=== PATIENT | female | born 1955 | race Caucasian/White ===

== ENCOUNTER → 2023-10-04 09:26 | Outpatient (REF) | payer MEDICARE, OTHER, SELFPAY | LOC: HWRAD 09:26 | PROVIDERS: ATTENDING PHYSICIAN Student in an Organized Health Care Education/Training Program | DX: Z12.31 Encounter for screening mammogram for malignant neoplasm of breast (principal); M81.0 Age-related osteoporosis without current pathological fracture | CPT/HCPCS: 77063; 77067; 77080 ==

== ENCOUNTER 2023-12-04 22:42 | Inpatient (IN) | payer MEDICARE, OTHER, SELFPAY ==
[2023-12-04] VITALS (7 sets, daily range): BP systolic 97–132; BP diastolic 56–76; BMI 25.6; BMI 24.9
[2023-12-04 20:09] LABS: % Basophils 0.5 % (0-2); % Eosinophils 1.6 % (0-6); % Immature Granulocytes 0.1 % (0-0.5); % Lymphocytes 30.8 % (20.5-51.1); Absolute Eosinophils 0.1 10^3/uL (0-0.7); Absolute Lymphocytes 2.7 10^3/uL (1.2-3.4); Absolute Monocytes 0.6 10^3/uL (0.1-0.6); Absolute Neutrophils 5.2 10^3/uL (1.4-6.5); Hematocrit 37.7 % (37.0-47.0); Hemoglobin 13.5 g/dL (12.0-16.0); Mean Corp Hgb Conc. 35.8 g/dL (33.0-37.0); Mean Corpuscular Hgb 29.7 pg (27.0-31.0); Mean Platelet Volume 9.1 fL (7.4-10.4); Nucleated Red Blood Cells % 0 %; Platelet Count 274 10^3/uL (130-400); Red Blood Cell Count 4.54 10^6/uL (4.20-5.40); Red Cell Dist. Width 13.3 % (11.5-14.5); White Blood Cell Count 8.6 10^3/uL (4.8-10.8)
[2023-12-04 20:24] LABS: ALT (SGPT) 18 U/L (0-35); AST (SGOT) 38 U/L (14-36); Albumin 4.5 g/dl (3.5-5.0); Alkaline Phosphatase 63 U/L (38-126); Blood Urea Nitrogen 18 mg/dl (7-17); Carbon Dioxide 25 mmol/L (22-30); Chloride 105 mmol/L (98-107); Estimated Creatinine Clearance 87 ml/min; Glucose 106 mg/dl (70-99); Potassium 3.8 mmol/L (3.5-5.1); Sodium 137 mmol/L (135-145); Total Bilirubin 0.7 mg/dl (0.2-1.3); Total Protein 6.9 g/dl (6.3-8.2); eGFR > 60.00
--- NOTE | 2023-12-04 20:27 | ED.GENMED ---
History of Present Illness
General
Chief Complaint: Cardiac Symptoms
Source: patient
Exam Limitations: none
Time Seen by Provider: 12/04/23 19:36
Travel History
Have you had any contact with someone who has COVID-19?: No
Do you have any symptoms of coronavirus? Fever > 100 degrees, chills, cough, shortness of breath, sore throat, loss of taste or smell, muscle aches, or headache?: No
History of Present Illness
History of Present Illness:
68-year-old female otherwise fairly healthy presents with palpitations onset last evening. This went away last evening came back again today. Someone that was with her put a smart watch on her wrist and it was notifying the patient of atrial
fibrillation. No prior history of this. She noted throat tightness when this was happening. She notes her heart rate has normalized currently. She denies any chest pain or shortness of breath. There is no associated nausea or diaphoresis. She
is healthy and does not take any medications
Phy Exam
Physical Exam
Physical Exam:
General: Well-appearing female no acute respiratory distress
HEENT: Normocephalic atraumatic neck is supple
Heart: Regular rate and rhythm no murmurs
Lungs: Clear no wheeze or rales
Abdomen: Soft nontender nondistended no guarding rebound normal bowel sounds
Extremities: No cyanosis or edema
Course
Orders/Labs/Results
Orders:
Orders
12/04/23 18:35
EKG [Electrocardiogram (*1)] Urgent
Reason for Study: Atrial Fibrillation
EKG- Treatment ONCE
12/04/23 20:00
Cardiac Monitoring- Treatment ONCE
12/04/23 20:01
CMP [Comprehensive Metabolic Panel] Urgent
Complete Blood Count/With Diff Urgent
TSH Reflex To Free T4 Urgent
Troponin I Urgent
12/04/23 21:18
Aspirin 325 mg PO NOW STA
12/04/23 21:36
PTT Urgent
Comment: Obtain baseline before beginning heparin infusion if not already collected
Heparin 4,000 units IV NOW STA
Pharmacy Request to Place See Dose Instructions PO NOW STA
Discontinue all Active Warfarin orders?: Yes
Nursing to Place Non Medication Order As Directed
Physician Order: PTT 6 hours after initial start of Heparin infusion
12/04/23 21:37
Metoprolol Xl [Toprol Xl] 12.5 mg PO NOW STA
12/04/23 21:45
Heparin 22078 Units/250 ml 25,000 units in 250 ml IV PER PROTOCOL
Weight to be used for heparin protocol in kilograms (kg):: 74
Protocol:: Cardiac Tx/Acute Coronary
PTT Goal Range to be used:: PTT 73 to 111 seconds
Order type:: Initial
INITIAL Infusion Dose (UNITS/KG/hr) & then follow protocol:: 15 units/kg/hr
Infusion Dose in UNITS/hr & then follow protocol (UNITS/hr):: 1,100
INFUSION RATE in mL/hr & then follow protocol (mL/hr):: 11
PTT less than or equal to 64 seconds:: Increase rate by 200 units/hr (+ 2 mL/hr)
PTT 64.1 to 72.9 seconds:: Increase rate by 100 units/hr (+ 1 mL/hr)
PTT 73 to 111 seconds:: Target Range. No change in rate.
PTT 111.1 to 130.9 seconds:: Decrease rate by 100 units/hr (- 1 mL/hr)
PTT 131 to 199.9 seconds:: HOLD for 1 hr. Then decrease rate by 200 units/hr (- 2 mL/hr)
PTT greater than or equal to 200 seconds:: HOLD for 2 hrs & Notify Provider. Then decrease by 200 units/hr (-
2 mL/hr)
Lab follow-up:: Each change, PTT q6h until 2 consecutive are therapeutic. Then PTT
daily.
12/04/23 22:[address] See Dose Instructions IV DIRECTED
Abnormal Lab Results
12/04/23
20:01
BUN 18 H mg/dl
(7-17)
Glucose 106 H mg/dl
(70-99)
AST 38 H U/L
(14-36)
Troponin I 1.320 H* ng/ml
12/04/23 20:01
12/04/23 20:01
Vital Signs
Initial and Last Documented VS:
Initial Vital Signs
Temp Pulse Resp BP Pulse Ox
98.7 F 78 17 132/76 99
12/04/23 18:42 12/04/23 18:42 12/04/23 18:42 12/04/23 18:42 12/04/23 18:42
Last Documented Vital Signs
Temp Pulse Resp BP Pulse Ox
98.7 F 78 17 132/76 99
12/04/23 18:42 12/04/23 18:42 12/04/23 18:42 12/04/23 18:42 12/04/23 18:42
MDM/Problems Addressed
Differential Diagnosis Includes:
Palpitations. Consider arrhythmia electrolyte abnormality or anemia. Check thyroid as well
EKG here shows sinus rhythm. Keep on monitor. Labs pending
*Critical Care Note
Total Time (30-74mins, 75-104mins- exclusive of procedures): Not Applicable
Update Note
Update Note:
Patient reexamined still pain-free. Troponin is elevated at 1.3. Discussed with cardiology who recommended aspirin heparin and Toprol-XL. Admit to medicine n.p.o. repeat labs and echocardiogram in the morning.
ED Attending Note
-
Portions of this chart may have been created with voice recognition software.� Occasional wrong word or��sound alike� substitutions may have occurred due to the inherent limitations of voice recognition software.
Discharge Plan
Departure
Patient Disposition: Admit
Date of Disposition: 12/04/23
Time of Disposition: 21:41
Admit to: Telemetry
Presentation/result/management discussed w/ accepting MD/DO: Hospitalist
Discharge Problem:
Chest pain
Referrals:
Chelsea Pittman DO [Family Provider] -
Interventions
Interventions:
*Risk Screen - Suicide Last Done: 12/04/23 18:43
*General Assessment Last Done: 12/04/23 18:43
*Neglect/Abuse Screening Last Done: 12/04/23 18:43
ED- Fall Risk Assessment Last Done: 12/04/23 19:56
*ED COVID-19 Vaccine History Last Done: 12/04/23 18:43
ED- Pulmonary Assessment Last Done: 12/04/23 19:56
ED- Cardiac Assessment Last Done: 12/04/23 19:56
Discharge Date and Time
Print Language: INDONESIAN
[2023-12-04 20:58] LABS: TSH Reflex To Free T4 1.67 uIU/ml (0.47-4.68)
[2023-12-04] MEDS: ASPIRIN 325 MG PO (21:20)
[2023-12-04] MEDS: TOPROL XL 12.5 MG PO (21:48)
[2023-12-04 21:57] LABS: APTT 33.8 Sec (23.4-35.0)
[2023-12-04] MEDS: HEPARIN 4000 UNITS IV (22:05)
--- NOTE | 2023-12-04 22:06 | HPS.HSE ---
Family Physician
-
Family Physician: Chelsea Pittman
Chief Complaint
-
Palpitations
History of Present Illness
Patient 68 years old female with past medical history of Takotsubo, dyslipidemia, anxiety, presented to the hospital with palpitations. Patient has been feeling palpitations since last evening around 8 PM and intermittent symptoms until she went to
bed. 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
with throat tightness and shortness of breath. One of the folks around was a doctor and she placed her smart watch on her and noticed that she was in an irregular heartbeat probably atrial fibrillation. She denies actual chest pain. She denies
nausea vomiting or diaphoresis or syncope. She had an episode of Takotsubo this to be attributed to high altitude and she had known coronary artery disease by cardiac catheterization at the time and she had a recent stress test a few months ago
that was unremarkable and no signs of ischemia. In the ED, she was noted to have elevated troponin of 1.30 and she was noticed normal sinus rhythm on twelve-lead EKG with nonspecific ST-T changes abnormalities. ER contacted cardiology who
recommended heparin drip and n.p.o. after midnight for possible procedures. She was referred to hospitalist for further evaluation.
Medical History
Past Medical History
Past Medical History: Reports Other (Hyperlipidemia, osteoporosis, nonobstructive CAD, PVCs in the past, history of Takotsubo cardiomyopathy, GERD, anxiety)
Past Surgical History: Reports Other (Cardiac catheterizations)
Social History
Tobacco: Non-smoker
Alcohol: None
Drug: None
Family History
Family History: Not pertinent
Allergies / Home Medications
Allergies reflects when Allergies were last updated in [facility].
Home Medications with original date entered in [facility]
Allergy/Medication List:
Allergies
Allergy/AdvReac Type Severity Reaction Status Date / Time
NKA - No Known Allergies Allergy Unknown Uncoded 12/04/23 18:41
Review of Systems
-
A 12 point ROS was completed and negative except as noted: Yes
Physical Exam
Vital Signs
Vital Signs
Temp Pulse Resp BP Pulse Ox
98.7 F 60 17 115/74 99
12/04/23 18:42 12/04/23 21:48 12/04/23 18:42 12/04/23 21:48 12/04/23 18:42
Physical exam:
General: Acutely ill
HEENT: Normocephalic, Atraumatic and Moist Mucous Membranes
Respiratory: Clear to Auscultation; Negative Wheezes, Rales or Rhonchi
Cardiac: Regular Rhythm and S1/S2
GI: Soft, Nontender and Nondistended
Musculoskeletal: No Clubbing, No Cyanosis and No Edema
Neuro: Awake, Alert and Oriented
Psych: Calm
Physical Exam
General: Other
Laboratory Results
-
12/04/23 20:01
12/04/23 20:01
Laboratory Results
APTT 33.8 Sec (23.4-35.0) 12/04/23 21:42
Total Bilirubin 0.7 mg/dl (0.2-1.3) 12/04/23 20:01
AST 38 U/L (14-36) H 12/04/23 20:01
ALT 18 U/L (0-35) 12/04/23 20:01
Alkaline Phosphatase 63 U/L (38-126) 12/04/23 20:01
Troponin I 1.320 ng/ml H* 12/04/23 20:01
Impression/Plan
-
IMPRESSION:
Patient 68 years female with history of Takotsubo cardiomyopathy in the past, anxiety, dyslipidemia came into the hospital palpitations/chest discomfort associated with elevated troponin. Possible episode of paroxysmal atrial fibrillation. Patient
at increased risk morbidity mortality therefore she will need to be treated in the hospital and monitor accordingly for progress and or toxicity.
Impression:
Chest pain/palpitations
Elevated troponin, rule out acute coronary syndrome
Conditions prior to presentation:
Takotsubo cardiomyopathy
Hyperlipidemia
Anxiety, nonspecific
PLAN:
She will be on a cardiac monitoring
Heparin drip for ACS protocol
Trend cardiac enzymes
Start aspirin 81 mg daily, atorvastatin 40 mg nightly, Toprol-XL 12.5 mg daily
Check fasting lipids in a.m.
Pain medications as needed
TSH checked and normal 1.67
DVT prophylaxis will be taking care of by heparin drip
CODE STATUS full code
Total time spent on today's encounter was 75 minutes which included time spent in counseling the patient/family regarding diagnosis and treatment plan as listed above, goals of care, and symptom management. Case was discussed with nursing staff,
specialists, and care coordinators/case management. All labs and imaging personally reviewed by me. Remainder the time spent in detailed review of previous records, lab data, imaging, and other medical provider documentation.
[2023-12-04] MEDS: HEPARIN 25000 UNITS/250 ML IV (22:08)
[2023-12-04] MEDS: LIPITOR 40 MG PO (23:50)
[2023-12-05] VITALS (13 sets, daily range): BP systolic 91–122; BP diastolic 59–72
[2023-12-05 01:40] LABS: Troponin I 0.855 ng/ml
[2023-12-05 03:42] LABS: APTT > 200 Sec (23.4-35.0)
[2023-12-05 07:36] LABS: Hematocrit 39.2 % (37.0-47.0); Hemoglobin 13.3 g/dL (12.0-16.0); Mean Corp Hgb Conc. 33.9 g/dL (33.0-37.0); Mean Corpuscular Hgb 29.2 pg (27.0-31.0); Mean Corpuscular Volume 86.2 fL (81.0-99.0); Mean Platelet Volume 9.3 fL (7.4-10.4); Platelet Count 246 10^3/uL (130-400); Red Blood Cell Count 4.55 10^6/uL (4.20-5.40); Red Cell Dist. Width 13.4 % (11.5-14.5); White Blood Cell Count 5.4 10^3/uL (4.8-10.8)
[2023-12-05 07:56] LABS: Blood Urea Nitrogen 17 mg/dl (7-17); Calcium 9.2 mg/dl (8.4-10.2); Carbon Dioxide 29 mmol/L (22-30); Chloride 107 mmol/L (98-107); Estimated Creatinine Clearance 87 ml/min; Glucose 89 mg/dl (70-99); HDL Cholesterol 69 mg/dl; LDL Cholesterol, Calculated 66 mg/dl; Potassium 4.1 mmol/L (3.5-5.1); Sodium 138 mmol/L (135-145); Total Cholesterol 147 mg/dl (50-199); Triglyceride 60 mg/dl (10-149); Very Low Density Lipoprotein 12 mg/dl (0-30); eGFR > 60.00
--- NOTE | 2023-12-05 08:25 | CON.CAR ---
Addendum entered and electronically signed by Stas Lott DO 12/05/23 09:50:
I saw and examined the patient.
The Register Of Deeds's note was reviewed and I agree with the note.
Comment:
Plan:
Discussed that her symptoms were concerning for [place] and her troponin peaked at 1.3 and is trending down.
Her EKG showed some nonspecific anterior ST-T changes
Discussed options and she was agreeable to left heart cardiac cath to eval her coronary anatomy. She has hx of nonobstructive disease by cath in [place] in 2018 in setting of Takotsubo CM.
Add beta alexander. Hypotension has precluded med therapy in the past for her CM. Her EF had historically normalized
She had recent normal perfusion stress in setting of atypical cp in Jun 2023.
Cont statin for hypelipidemia
Check echo
Cont IV Heparin
Check outpt monitor to eval for AFib and cont to monitor for arrhythmia on tele. Strips reviewed from 27 bards not conclusive for arrhythmia. Ectopy was noted.
Discussed with nursing.
Original Note:
Consultation
Consultation Request
Date/Time Consultation Requested: 12/04/2023
Date/Time Consultation Performed: 12/05/2023
Requesting Provider: Dr. Coombs
Performing Provider: Bernadette Arteaga PA-C for Dr. Lott
Reason for Consultation: Abnormal troponin, palpitations
Medical History
-
History of Present Illness:
Patient is a 68-year-old female with past medical history significant for Takotsubo cardiomyopathy with recovered ejection fraction, hyperlipidemia, cystic kidney disease who presented to emergency department 12/04/2023 with complaints of palpitations
associated with chest/throat tightness and shortness of breath. Patient reports on the evening 12/03/2023 she started with intermittent palpitations where she felt her heart was beating fast/pounding and skipping. This was associated with throat and
chest tightness. She went to bed and woke up the next morning with similar symptoms. As the day went on she noted dyspnea on exertion with ongoing palpitations. 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
unwell. There was a physician who was present who had a smart watch and placed it on her which showed possible atrial fibrillation and she was prompted to go to the emergency department. Upon presentation to the emergency department her symptoms
were improving. EKG showed sinus rhythm without acute ischemic changes. Patient was noted to have elevated troponin of 1.320. TSH 1.67.
At time of this evaluation patient resting comfortably in bed. She currently denies chest or throat discomfort, palpitations, shortness of breath. I reviewed tracings from smart watch which show possible atrial fibrillation although baseline
artifact makes interpretation difficult. She did have short runs of PVCs in ventricular bigeminy pattern on one tracing.
Past medical history:
Takotsubo cardiomyopathy with recovered ejection fraction 2017
Hyperlipidemia
Cystic kidney disease
Past Medical History
Past Medical History: Other ([facility])
Past Surgical History: Other (Renal cyst removed 1998)
Social History
Tobacco: Non-Smoker
Alcohol: Occasional
Drug: None
Personal:
Living: With Family
Family History
Family History: Other (Father of a stroke at 74; mother had CAD/CABG x 3 at 70)
Allergies / Home Medications
Allergy/AdvReac Type Severity Reaction Status Date / Time
No Known Allergies Allergy Verified 12/04/23 23:56
Review of Systems
-
History Source: Patient
All other systems: Negative unless noted
Physical Exam
Vital Signs
Temp Pulse Resp BP Pulse Ox
98.2 F 56 17 104/61 99
12/05/23 07:00 12/05/23 07:00 12/05/23 07:00 12/05/23 07:00 12/05/23 07:00
GEN: No distress, awake, Ox3
HEENT: supple, anicteric, mmm
LUNGS: CTA, no wheezes/rales
CV: Reg, S1/S2, no murmur, rub or gallop
ABD: soft, BS+, NT/ND
EXT: No edema, clubbing or cyanosis
NEURO: Gross non-focal
SKIN: No rash, warm, dry, pink
Lab Results
12/05/23 07:06
12/05/23 07:06
Troponin I 0.550 ng/ml H* D 12/05/23 07:06
Impression / Plan
-
PCP: Regi Pittman
Surfacer Operator: Dr. Stas Lott
Impression:
Presented 12/04/2023 with palpitations, throat and chest discomfort
Abnormal troponin
Takotsubo cardiomyopathy with recovered ejection fraction 2017
Hyperlipidemia
Cystic kidney disease
Lexiscan nuclear stress test June 2023: Normal perfusion with preserved ejection fraction
Echocardiogram 08/05/2021: EF 60 to 65% with normal regional wall motion. Mild septal hypertrophy. Mild TR.
Cardiac cath April 2018 (in [place]): Nonobstructive 3�vessel disease
-Presented 12/04/2023 with palpitations, throat and chest discomfort
-Abnormal troponin, peaked 1.32 on initial presentation then downward trending. This occurred in setting of palpitations x 24 hours
-EKG on presentation demonstrated normal sinus rhythm with no acute ischemic changes.
-Continue IV heparin drip for 24 hours
-Would check echocardiogram given prior history of Takotsubo cardiomyopathy and now abnormal troponin
-Patient was noted to have nonobstructive three-vessel disease on cardiac catheterization in 2017. She had a normal Lexiscan nuclear stress test in June 2023. Pending echo results consider repeat ischemic evaluation possibly cardiac
catheterization
-Would keep n.p.o.
-Per review of telemetry no arrhythmias or evidence of atrial fibrillation noted overnight. Patient currently denies palpitations. If no arrhythmia noted throughout admission consider repeat outpatient monitor
-Prior history of Takotsubo cardiomyopathy with recovered ejection fraction. Patient did not tolerate beta-alexander or JOSÉ MIGUEL inhibitor secondary to ongoing hypotension with several episodes of near syncope. Repeat echocardiogram
-Hyperlipidemia: Patient takes atorvastatin 20 mg as outpatient. Lipid profile 12/05/2023 TC 147, HDL 69, LDL 66, triglycerides 60. Continue atorvastatin
-Blood pressure well-controlled and low at times. Currently not on any antihypertensive agents.
HPI 12/05/2023:
Patient is a 68-year-old female with past medical history significant for Takotsubo cardiomyopathy with recovered ejection fraction, hyperlipidemia, cystic kidney disease who presented to emergency department 12/04/2023 with complaints of palpitations
associated with chest/throat tightness and shortness of breath. Patient reports on the evening 12/03/2023 she started with intermittent palpitations where she felt her heart was beating fast/pounding and skipping. This was associated with throat and
chest tightness. She went to bed and woke up the next morning with similar symptoms. As the day went on she noted dyspnea on exertion with ongoing palpitations. On the evening of 12/04/2023 she was participating in a [employer] concert and felt
unwell. There was a physician who was present who had a smart watch and placed it on her which showed possible atrial fibrillation and she was prompted to go to the emergency department. Upon presentation to the emergency department her symptoms
were improving. EKG showed sinus rhythm without acute ischemic changes. Patient was noted to have elevated troponin of 1.320. TSH 1.67.
At time of this evaluation patient resting comfortably in bed. She currently denies chest or throat discomfort, palpitations, shortness of breath. I reviewed tracings from smart watch which show possible atrial fibrillation although baseline
artifact makes interpretation difficult. She did have short runs of PVCs in ventricular bigeminy pattern on one tracing.
Data Reviewed
-
EKG: Report Reviewed by me, Discussed with Physician, Discussed with Nurse and Discussed with Patient
Labs: Labs Reviewed by me, Discussed with Physician, Discussed with Nurse and Discussed with Patient
Old Records: Reviewed
[2023-12-05] MEDS: LOW STRENGTH ASPIRIN 81 MG PO (08:30)
--- NOTE | 2023-12-05 09:09 | W.PN.HOSP.TC ---
Today's Communication/Plan
-
Plan for cardiac cath. Plan for echocardiogram. Continue heparin drip.
Assessment / Plan
Assessment / Plan
Physical exam:
General: Acutely ill
HEENT: Normocephalic, Atraumatic and Moist Mucous Membranes
Respiratory: Clear to Auscultation; Negative Wheezes, Rales or Rhonchi
Cardiac: Regular Rhythm and S1/S2
GI: Soft, Nontender and Nondistended
Musculoskeletal: No Clubbing, No Cyanosis and No Edema
Neuro: Awake, Alert and Oriented
Psych: Calm
A/P:
Impression:
Chest pain/palpitations
Elevated troponin, rule out acute coronary syndrome
Rule out cardiac arrhythmias
Conditions prior to presentation:
Takotsubo cardiomyopathy
Hyperlipidemia
Anxiety, nonspecific
PLAN:
She will be on a cardiac monitoring
Cont Heparin drip for ACS protocol
Trended cardiac enzymes
Plan for cardiac catheterization today
Plan to repeat echocardiogram
Started aspirin 81 mg daily, atorvastatin 40 mg nightly, Toprol-XL 12.5 mg daily. Defer to cardiology any modifications of this regimen.
Check fasting lipids and LDL 66
Pain medications as needed
TSH checked and normal 1.67
DVT prophylaxis will be taking care of by heparin drip
CODE STATUS full code
Total time spent on today's encounter was 52 minutes which included time spent in counseling the patient/family regarding diagnosis and treatment plan as listed above, goals of care, and symptom management. Case was discussed with nursing staff,
specialists, and care coordinators/case management. All labs and imaging personally reviewed by me. Remainder the time spent in detailed review of previous records, lab data, imaging, and other medical provider documentation.
Anticipated Discharge: 24 - 48 hours
Subjective/Interval History
-
Date of Service: December 05, 2023
Patient denies any chest pain or shortness of breath or palpitations today.
Objective Data
-
Labs:
Laboratory Results
12/04/23 12/05/23 12/05/23
21:42 03:01 07:06
WBC 5.4
Hgb 13.3
Hct 39.2
Plt Count 246
APTT 33.8 > 200 H*
Sodium 138
Potassium 4.1
Chloride 107
Carbon Dioxide 29
BUN 17
Creatinine 0.6
Glucose 89
Calcium 9.2
12/05/23
12:00
WBC
Hgb
Hct
Plt Count
APTT Pending
Sodium
Potassium
Chloride
Carbon Dioxide
BUN
Creatinine
Glucose
Calcium
Vital Signs:
Vital Signs
Temp Pulse Resp BP Pulse Ox
98.2 F 56 17 104/61 99
12/05/23 07:00 12/05/23 07:00 12/05/23 07:00 12/05/23 07:00 12/05/23 07:00
I&O
12/04/23 12/05/23 12/06/23
06:59 06:59 06:59
Intake Total 240 / 240
Balance 240 / 240
Review of Systems
-
All other systems: Reviewed and negative
[2023-12-05 12:04] LABS: APTT 86.8 Sec (23.4-35.0)
--- NOTE | 2023-12-05 15:14 | CM ---
Addendum entered by Martha Fong 12/05/23 15:28:
PCP - Dr Chelsea Sy
Pharm - [facility]
CM will follow for d/c needs
Plan - anticipate home no needs
Original Note:
Met with pt at bedside
Lives with her in a 2 story home
Independent, driving, retired
DME - none
SNF/HH - denies past hx
Has ride at d/c
--- NOTE | 2023-12-05 15:18 | ITS.CL.CATH ---
Application Support Administrator - Catheterization
Cardiac Catheterization
Procedure Report:
LEFT HEART CATHETERIZATION
Date of Procedure: December 05, 2023
Referring: Dr. Stas Lott
PROCEDURES:
1. Left heart catheterization with coronary and single-plane left ventriculography
INDICATION: Chest pain, palpitations, elevated troponin
ACCESS: Right radial artery, 6 [place]ian sheath
HEMODYNAMICS : (mmHg)
AO (s/d) : 112/63
LV (s/d) : 118/5
LVEDP : 15
CORONARY FINDINGS
DOMINANCE: Right
LEFT MAIN: Normal
LEFT ANTERIOR DESCENDING: The LAD arises normally from the left main and runs in the anterior interventricular groove. The LAD has only minor luminal irregularities over its course. The distal vessel wraps completely around the apex supplying a
portion of the inferior wall. The first diagonal branch arises from the proximal one third of the LAD and is a small caliber vessel with a 50-60% narrowing at its origin. The second diagonal branch is small. Several smaller terminal diagonal
branches arise distally.
CIRCUMFLEX: The circumflex is a medium caliber nondominant vessel with only minor luminal irregularities noted over its course. The circumflex supplies a single sizable obtuse marginal branch that bifurcates distally.
RIGHT CORONARY ARTERY: The right coronary artery is a moderate-large caliber dominant vessel with minor irregularities throughout its midportion. There are serial 30% mid RCA stenoses. The distal RCA has only minor luminal irregularities. The PDA
is small but patent. The posterolateral branch is small and widely patent
VENTRICULOGRAPHY: Left ventriculography is performed in an PAULSON projection. The digital single-plane left ventricular ejection fraction is estimated at 60%. No regional wall motion abnormalities are noted. There is trace mitral regurgitation
RADIATION SUMMARY: Fluoro Time (min): 4.1, Dose (mGy): 230, DAP (Gy.cm2) : 21.5
Closure Device: TR band
CONCLUSIONS
1. Nonobstructive coronary disease with MARTINE-3 flow to all distal branch vessels
2. Preserved left ventricular systolic function
RECOMMENDATIONS
1. Will load with 600 mg of clopidogrel and treat with dual antiplatelet therapy for 3-6 months
2. Increase atorvastatin from 20 to 40 mg daily
3. Will discontinue metoprolol XL and try Cardizem CD for potential coronary spasm
4. Consider exercise stress testing for recurring symptoms after maximized on medical therapy
5. Will schedule a 2-week Maxta monitor on discharge for evaluation of palpitations. She did bring an [employer] ECG tracing with poor/unusable baseline tracing but was told it was concerning for atrial fibrillation by a adventist member.
Copy to: Dr. Stas Lott
--- NOTE | 2023-12-05 16:01 | PTCARENOTE ---
Received pt from laboratory director. TR band on R radial site, no bleeding or hematoma noted, see post cath worklist. Pt AOx3, no pain, VSS.
[2023-12-05] MEDS: TYLENOL 650 MG PO ×2 (16:22→21:40)
[2023-12-05] MEDS: PLAVIX 600 MG PO (17:08)
[2023-12-05] MEDS: LIPITOR 40 MG PO (17:09)
[2023-12-06 03:49] VITALS: BP 107/62
[2023-12-06 07:00] VITALS: BP 114/67
[2023-12-06 07:07] LABS: Hematocrit 40.8 % (37.0-47.0); Hemoglobin 13.8 g/dL (12.0-16.0); Mean Corp Hgb Conc. 33.8 g/dL (33.0-37.0); Mean Corpuscular Hgb 29.4 pg (27.0-31.0); Mean Corpuscular Volume 86.8 fL (81.0-99.0); Mean Platelet Volume 9.3 fL (7.4-10.4); Platelet Count 246 10^3/uL (130-400); Red Cell Dist. Width 13.2 % (11.5-14.5); White Blood Cell Count 4.6 10^3/uL (4.8-10.8)
[2023-12-06 07:22] LABS: Blood Urea Nitrogen 15 mg/dl (7-17); Calcium 9.5 mg/dl (8.4-10.2); Carbon Dioxide 27 mmol/L (22-30); Chloride 105 mmol/L (98-107); Estimated Creatinine Clearance 75 ml/min; Glucose 87 mg/dl (70-99); Potassium 4.6 mmol/L (3.5-5.1); Sodium 138 mmol/L (135-145); eGFR > 60.00
--- NOTE | 2023-12-06 09:05 | W.PN.HOSP.TC ---
Addendum entered and electronically signed by Mark Coombs MD 12/06/23 17:42:
Type II [place] demand ischemia
Original Note:
Today's Communication/Plan
-
Continue current management. Discharge planning today.
Assessment / Plan
Assessment / Plan
Physical exam:
General: No acute distress
HEENT: Normocephalic, Atraumatic and Moist Mucous Membranes
Respiratory: Clear to Auscultation; Negative Wheezes, Rales or Rhonchi
Cardiac: Regular Rhythm and S1/S2
GI: Soft, Nontender and Nondistended
Musculoskeletal: No Clubbing, No Cyanosis and No Edema
Neuro: Awake, Alert and Oriented
Psych: Calm
Cardiac cath:
1. Nonobstructive coronary disease with MARTINE-3 flow to all distal branch vessels
2. Preserved left ventricular systolic function
A/P:
Impression:
Chest pain/palpitations
Elevated troponin, rule out acute coronary syndrome. Possible vasospasm in the coronaries.
Rule out cardiac arrhythmias
Conditions prior to presentation:
Takotsubo cardiomyopathy
Hyperlipidemia
Anxiety, nonspecific
PLAN:
Cardiology recommended dual antiplatelet therapy aspirin Plavix, increase atorvastatin to 40 mg daily, and stop metoprolol and start Cardizem CD
Plan for 2-week heart monitor upon discharge
Check fasting lipids and LDL 66
TSH checked and normal 1.67
CODE STATUS full code
Anticipated Discharge: Today
Subjective/Interval History
-
Date of Service: December 06, 2023
Patient feels well. No chest pain palpitations or shortness of breath
Objective Data
-
Labs:
Laboratory Results
12/06/23
06:02
WBC 4.6 L
Hgb 13.8
Hct 40.8
Plt Count 246
Sodium 138
Potassium 4.6
Chloride 105
Carbon Dioxide 27
BUN 15
Creatinine 0.7
Glucose 87
Calcium 9.5
Vital Signs:
Vital Signs
Temp Pulse Resp BP Pulse Ox
97.5 F 54 17 114/67 98
12/06/23 07:00 12/06/23 07:00 12/06/23 07:00 12/06/23 07:00 12/06/23 07:00
I&O
12/05/23 12/06/23 12/07/23
06:59 06:59 06:59
Intake Total 240 / 240 480 / 480
Balance 240 / 240 480 / 480
[2023-12-06] MEDS: CARDIZEM CD 120 MG PO (10:45)
[2023-12-06] MEDS: PLAVIX 75 MG PO (10:45)
[2023-12-06] MEDS: LOW STRENGTH ASPIRIN 81 MG PO (10:45)
[2023-12-06 10:50] VITALS: BP 100/56
--- NOTE | 2023-12-06 11:53 | W.PN.CARDCBS ---
Today's Communication / Plan
-
Reviewed cath with pt and .
Cont Cardizem started by Dr Crews for possible spasm and hold beta alexander.
Cont DAPT for 3-6 months
Could consider stress testing for recurrent symptoms on maximal medical therapy as per interventional
Statin increased from 20 to 40 mg daily this admit
Outpt 7 day [facility] to eval for atrial fibrillation. Could consider further monitoring if negative with longer monitor or LINQ
Stable for d/c from cardiac standpoint.
Discussed with and primary service.
Impression / Plan
-
PCP: Regi Pittmna
Bakery Assistant: Dr. Stas Lott
Impression:
Presented 12/04/2023 with palpitations, throat and chest discomfort
Abnormal troponin
Takotsubo cardiomyopathy with recovered ejection fraction 2017
Hyperlipidemia
Cystic kidney disease
Lexiscan nuclear stress test June 2023: Normal perfusion with preserved ejection fraction
Echocardiogram 08/05/2021: EF 60 to 65% with normal regional wall motion. Mild septal hypertrophy. Mild TR.
Cardiac cath April 2018 (in [place]): Nonobstructive 3�vessel disease
Plan:
-Presented 12/04/2023 with palpitations, throat and chest discomfort
-Abnormal troponin, peaked 1.32 on initial presentation then downward trending. This occurred in setting of palpitations x 24 hours
Reviewed cath with pt and .
Cont Cardizem started by Dr Crews for possible spasm and hold beta alexander.
Cont DAPT for 3-6 months
Could consider stress testing for recurrent symptoms on maximal medical therapy as per interventional
Statin increased from 20 to 40 mg daily this admit
Outpt 7 day [facility] to eval for atrial fibrillation. Could consider further monitoring if negative with longer monitor or LINQ
Stable for d/c from cardiac standpoint.
Discussed with and primary service.
HPI 12/05/2023:
Patient is a 68-year-old female with past medical history significant for Takotsubo cardiomyopathy with recovered ejection fraction, hyperlipidemia, cystic kidney disease who presented to emergency department 12/04/2023 with complaints of palpitations
associated with chest/throat tightness and shortness of breath. Patient reports on the evening 12/03/2023 she started with intermittent palpitations where she felt her heart was beating fast/pounding and skipping. This was associated with throat and
chest tightness. She went to bed and woke up the next morning with similar symptoms. As the day went on she noted dyspnea on exertion with ongoing palpitations. On the evening of 12/04/2023 she was participating in a [employer] concert and felt
unwell. There was a physician who was present who had a smart watch and placed it on her which showed possible atrial fibrillation and she was prompted to go to the emergency department. Upon presentation to the emergency department her symptoms
were improving. EKG showed sinus rhythm without acute ischemic changes. Patient was noted to have elevated troponin of 1.320. TSH 1.67.
At time of this evaluation patient resting comfortably in bed. She currently denies chest or throat discomfort, palpitations, shortness of breath. I reviewed tracings from smart watch which show possible atrial fibrillation although baseline
artifact makes interpretation difficult. She did have short runs of PVCs in ventricular bigeminy pattern on one tracing.
Progress Note - Bakery Assistant
Subjective
Date of Service: December 06, 2023
Pt seen and examined. No complaints. No chest pain or shortness of breath.
Objective
Labs:
12/06/23 06:02
12/06/23 06:02
Labs
Hgb 13.8 g/dL (12.0-16.0) 12/06/23 06:02
Hct 40.8 % (37.0-47.0) 12/06/23 06:02
Plt Count 246 10^3/uL (130-400) 12/06/23 06:02
APTT 86.8 Sec (23.4-35.0) H 12/05/23 11:45
Sodium 138 mmol/L (135-145) 12/06/23 06:02
Potassium 4.6 mmol/L (3.5-5.1) 12/06/23 06:02
BUN 15 mg/dl (7-17) 12/06/23 06:02
Creatinine 0.7 mg/dL (0.6-1.0) 12/06/23 06:02
Glucose 87 mg/dl (70-99) 12/06/23 06:02
Troponins
12/04/23 12/05/23 12/05/23
20:01 00:59 07:06
Troponin I 1.320 H* 0.855 H* D 0.550 H* D
Vital Signs and I&O:
Vital Signs
Temp Pulse Resp BP Pulse Ox
97.8 F 62 19 100/56 95
12/06/23 10:50 12/06/23 10:50 12/06/23 10:50 12/06/23 10:50 12/06/23 10:50
Vital Signs
Temp Pulse Resp BP Pulse Ox
97.8 F 62 19 100/56 95
12/06/23 10:50 12/06/23 10:50 12/06/23 10:50 12/06/23 10:50 12/06/23 10:50
Intake & Output
12/04/23 12/05/23 12/06/23 12/07/23
06:59 06:59 06:59 06:59
Intake Total 240 / 240 480 / 480
Balance 240 / 240 480 / 480
Physical Exam
Physical Exam
General: No acute distress, AAOX3
Neck: Negative JVD
Heart: Regular, Negative S3 positive S1/S2, Negative S4, No murmur
Lungs: CTA b/l, negative wheezes/rales/rhonchi
Abd: Positive BS, NT/ND, neg rebound/rigidity/guarding
Ext: Negative cyanosis/clubbing/edema
Neuro: nonfocal
--- NOTE | 2023-12-06 12:24 | W.DCSUMMARY ---
Discharge Summary
Discharge Data
Date of Admission: 12/04/23
Date of Discharge: 12/06/23
-
Pending Results: No
Hospital Course
Patient is 68 years old female with history of Takotsubo cardiomyopathy with recovered ejection fraction, cystic kidney disease, hyperlipidemia, presented to the hospital with palpitations associated with chest discomfort and shortness of breath.
She was found to have elevated troponin. Cardiology consulted. Cardiology did a cardiac catheterization on her. No obstructive CAD was noted. She had some of the following abnormalities:The LAD has only minor luminal irregularities over its
course. The distal vessel wraps completely around the apex supplying a portion of the inferior wall. The first diagonal branch arises from the proximal one third of the LAD and is a small caliber vessel with a 50-60% narrowing at its origin. There
are serial 30% mid RCA stenoses. Echocardiogram showed normal ejection fraction at this time, 60 to 65%. Cardiology recommended dual antiplatelet therapy, increased dose of statins, and calcium channel alexander. When she had this episode there was
some concerns if she had gone into atrial fibrillation or any arrhythmias but is inconclusive at this point so she will continue to have an outpatient event monitor for further evaluation. Otherwise, patient is hemodynamically stable and
asymptomatic. Cardiology cleared her for discharge today. She will be discharged in stable condition today.
Discharge duration: 35 minutes
Discharge Plan
-
Patient Disposition: Home (Routine Discharge)
Discharge Diagnosis/Procedures: Chest pain and elevated troponin. Possible coronary spasm. Rule out cardiac arrhythmias as outpatient.
Diet: Low Cholesterol
Activity: As tolerated
Driving Restrictions: As prior to admission
Blood Work: Please PCP to order CBC, BMP within 1 week.
Stand Alone Forms: DC Instructions- Cath/EP Lab
Referrals:
Chelsea Pittman DO [Family Provider] - in less than 1 week
Tori Martinez PA-C [Specified Professional Personl] - 12/29/23 10:00 am (Cardiology followup appointment)
Prescriptions:
New
atorvastatin 40 mg Tablet
40 mg PO QPM 30 Days Qty: 30 0RF
aspirin [Children's Aspirin] 81 mg Tablet,Chewable
81 mg PO DAILY Qty: 30 0RF
diltiazem HCl 120 mg Capsule,Extended Release 24hr
120 mg PO DAILY 30 Days Qty: 30 0RF
clopidogrel 75 mg Tablet
75 mg PO DAILY 30 Days Qty: 30 0RF
Continued
ibandronate 150 mg tablet
150 mg PO MONTHLY
Discontinued
atorvastatin 20 mg Tablet
20 mg PO HS
Discharge Orders:
Discharge Patient (As Directed); Ordered 12/06/23
Ordered By: Mark Coombs
Discharge Date and Time
Discharge Date/Time: 12/06/23 14:11
Print Language: SYRIAC
--- NOTE | 2023-12-06 12:30 | CM ---
Case management following for d/c planning
Pt for d/c today
Discussed IMM
Pt has ride home with family
Plan - home no needs
--- NOTE | 2023-12-06 14:51 | PN.CDI ---
CDI
- -
CDI:
Physician Documentation Request
Admit Date: 12/04/23 22:42
Dear Doctor Malvin,
Patient presented with chest pain and palpitations
12/04 wastewater analyst lab analyst conclusion states ' Nonobstructive coronary disease with MARTINE-3 flow to all distal branch vessels'
Troponin results:
Laboratory Tests
12/04/23 12/05/23 12/05/23
20:01 00:59 07:06
Troponin I 1.320 H* 0.855 H* D 0.550 H* D
After careful study , what is the etiology of the elevated troponin:
Non-Ischemic myocardial injury
Type II [place] demand ischemia
Other
Use of terms such as suspected, likely, concern for, or probable (associated with a specific diagnosis that is being evaluated, monitored, or treated as if it exists) are acceptable and can be coded in the inpatient setting, when documented at the
time of discharge.
Thank you,
Nola Upton RN, BSN
CDI Specialist
tiger text
Please use your independent medical judgment in providing your response.
== END 2023-12-06 14:11 | disposition home or self-care (01) | DRG 282 ==
LOC: 3 WEST ACU 22:42
PROVIDERS: Internal Medicine Interventional Cardiology; Nurse Practitioner; Physician Assistant; ADMITTING PHYSICIAN Hospitalist; EMERGENCY PHYSICIAN Emergency Medicine; FAMILY PHYSICIAN Student in an Organized Health Care Education/Training Program; OTHER PHYSICIAN Nuclear Medicine Nuclear Cardiology
PROC: B2151ZZ Fluoroscopy of Left Heart using Low Osmolar Contrast (ICD-10-PCS; 2023-12-05)
PROC: B2111ZZ Fluoroscopy of Multiple Coronary Arteries using Low Osmolar Contrast (ICD-10-PCS; 2023-12-05)
PROC: 4A023N7 Measurement of Cardiac Sampling and Pressure, Left Heart, Percutaneous Approach (ICD-10-PCS; 2023-12-05)
DX: R00.2 Palpitations (principal); I21.A1 Myocardial infarction type 2; F41.9 Anxiety disorder, unspecified; E78.49 Other hyperlipidemia
CPT/HCPCS: 80048; 80053; 80061; 83735; 84443; 84484; 85025; 85027; 85730; 93005; 93306; 93458; 99285; C1894; Q9967

== ENCOUNTER → 2024-03-13 10:31 | Outpatient (REF) | payer MEDICARE, OTHER, SELFPAY | LOC: RAD 10:31 | PROVIDERS: ATTENDING PHYSICIAN Internal Medicine Rheumatology; FAMILY PHYSICIAN Student in an Organized Health Care Education/Training Program | DX: M25.569 Pain in unspecified knee (principal); M54.9 Dorsalgia, unspecified; M81.0 Age-related osteoporosis without current pathological fracture | CPT/HCPCS: 72072; 72110; 73560; 73565 ==

== ENCOUNTER → 2024-07-05 14:42 | Outpatient (REF) | payer MEDICARE, OTHER, SELFPAY | LOC: RAD 14:42 | PROVIDERS: ATTENDING PHYSICIAN Student in an Organized Health Care Education/Training Program | DX: M25.522 Pain in left elbow (principal) | CPT/HCPCS: 73080 ==

== ENCOUNTER → 2024-12-29 11:03 | Outpatient (REF) | payer MEDICARE, OTHER, SELFPAY | LOC: RAD 11:03 | PROVIDERS: ATTENDING PHYSICIAN Student in an Organized Health Care Education/Training Program | DX: M67.472 Ganglion, left ankle and foot (principal) | CPT/HCPCS: 73630 ==

== ENCOUNTER → 2025-01-08 10:51 | Outpatient (REF) | payer MEDICARE, OTHER, SELFPAY | LOC: HWRAD 10:51 | PROVIDERS: ATTENDING PHYSICIAN Student in an Organized Health Care Education/Training Program | DX: M67.472 Ganglion, left ankle and foot (principal); R22.42 Localized swelling, mass and lump, left lower limb | CPT/HCPCS: 76882 ==